=== PATIENT | female | born 1955 | race Hispanic/Latino ===

== ENCOUNTER → 2019-06-02 | Outpatient (CLI) | payer MEDICARE ==
--- NOTE | 2019-06-02 15:23 | Diagnostic Imaging Report ---
EXAMINATION: SP LUMBAR, COMPLETE MIN 4VW INDICATION: Back pain COMPARISON: None FINDINGS: No compression fracture. Vertebral body height is maintained. Alignment is anatomic. Mild multilevel degenerative changes of the lower lumbar spine most notably at L4-5 and L5-S1 with disc space narrowing, small osteophyte formation, and facet arthropathy. Nonobstructive bowel gas pattern. No free air. IMPRESSION: Normal lumbar spine alignment. No compression fracture. Degenerative changes of the lower lumbar spine. Signed by: Comfort Farr MD on 06/02/2019 3:20 PM
== END ==
LOC: RAD 13:09
PROVIDERS: ATTEND Family Medicine
DX: M54.5 Low back pain (principal)
CPT/HCPCS: 72110